=== PATIENT | female | born 2000 | race Caucasian/White ===

== ENCOUNTER 2022-06-30 08:24 | Emergency (ER) | payer BC ==
[2022-06-30 08:53] LABS: HEMOGLOBIN 14.8 gm/dl (12.3-15.3); RED BLOOD COUNT 4.96 M/UL (4.00-5.10); WHITE BLOOD COUNT 8.6 K/UL (4.5-11.0)
[2022-06-30 09:11] LABS: BUN/CREATININE RATIO 12 (0-10)
[2022-06-30] MEDS ORDERED: HYDROCODON-ACE1 EAC4 PO ×2 (12:28→13:25)
[2022-06-30] MEDS ORDERED: OMNICEF 300 MG300 MG PO (13:25)
== END 2022-06-30 13:45 | disposition home or self-care (01) ==
LOC: ER1 08:24
PROVIDERS: Emergency Medicine
DX: N13.2 Hydronephrosis with renal and ureteral calculous obstruction (principal)
CPT/HCPCS: 80053; 81001; 83690; 84702; 84703; 85025; 87086; 96374; 96375; 99284; J0696; J1885; J2270; J2405